=== PATIENT | female | born 1930 | race Caucasian/White ===

== ENCOUNTER 2021-01-18 00:46 | Emergency (ER) | payer MEDICARE, OTHER ==
[2021-01-18 01:05] VITALS: BP 166/82; PULSE 74
[2021-01-18] MEDS: HYDROmorphone 1 MG/ML Syringe IVPUSH ONE (01:08)
--- NOTE | 2021-01-18 01:48 | EDM.PDOC ---
ED HPI GENERAL MEDICAL PROBLEM - General Chief Complaint: Lower Extremity Injury/Pain Stated Complaint: hip pain Time Seen by Provider: 01/18/21 01:22 Source of Information: Reports: Patient, EMS History Limitations: Reports: No Limitations - History of Present Illness INITIAL COMMENTS - FREE TEXT/NARRATIVE: Patient presents with acute left hip pain. She says she was sitting in her recliner watching TV when it started abruptly. She could barely tolerate putting weight on it. 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 She says the pain tonight was not as bad as the pain she used to have prior to the replacement however. EMS gave her 4 mg of morphine en route and it didn't give much relief tonight. She denies any recent falls or injuries. A few days ago she walked quite a bit with her daughter at [email or web address] in [place] so was sore a bit after that. Left Hip Pain Score (Numeric/FACES): 10 - Related Data Allergies Allergy/AdvReac Type Severity Reaction Status Date / Time niacin Allergy Itching Verified 01/18/21 01:07 Home Meds: Home Meds Aspirin [Halfprin] 81 mg PO DAILY 01/18/21 [History] Calcium Carbonate [Calcium] 600 mg PO BID@01/18/21 [History] Cholecalciferol (Vitamin D3) [Vitamin D3] 1,000 unit PO DAILY 01/18/21 [History] Furosemide 20 mg PO DAILY 01/18/21 [History] Glucosamine [Glucosamine Sulfate] 1,000 mg PO DAILY 01/18/21 [History] Ipratropium/Albuterol Sulfate [Iprat-Albut 0.5-3(2.5) MG/3 ML] 3 ml IH TID 01/18/21 [History] Magnesium Oxide 800 mg PO DAILY 01/18/21 [History] Metoprolol Succinate [Toprol XL] 25 mg PO BID@01/18/21 [History] Multivitamin 1 each PO DAILY 01/18/21 [History] Omeprazole 20 mg PO DAILY 01/18/21 [History] Potassium Chloride 20 meq PO DAILY 01/18/21 [History] Rivaroxaban [Xarelto] 15 mg PO DAILY 01/18/21 [History] Rosuvastatin [Crestor] 10 mg PO DAILY 01/18/21 [History] Social & Family History - Tobacco Use Tobacco Use Status *Q: Former Tobacco User Used Tobacco, but Quit: Yes Month/Year Tobacco Last Used: 09/1995 Second Hand Smoke Exposure: No - Caffeine Use Caffeine Use: Reports: Soda - Recreational Drug Use Recreational Drug Use: No Review of Systems - Review of Systems Review Of Systems: See Below Constitutional: Denies: Chills, Diaphoresis, Fever, Weakness Eyes: Reports: No Symptoms Ears: Reports: No Symptoms Nose: Reports: No Symptoms Mouth/Throat: Reports: No Symptoms Respiratory: Reports: No Symptoms Cardiovascular: Reports: No Symptoms GI/Abdominal: Reports: No Symptoms Genitourinary: Reports: No Symptoms Musculoskeletal: Reports: Joint Pain (anterior left hip only). Denies: Neck Pain, Shoulder Pain, Arm Pain, Back Pain Skin: Reports: No Symptoms Neurological: Reports: No Symptoms Psychiatric: Reports: No Symptoms ED EXAM, GENERAL - Physical Exam Exam: See Below Exam Limited By: No Limitations General Appearance: Alert, WD/WN, No Apparent Distress Eye Exam: Bilateral Eye: EOMI, Normal Inspection, PERRL Ears: Normal External Exam, Hearing Grossly Normal Nose: Normal Inspection, No Blood Throat/Mouth: Normal Inspection, Normal Lips, Normal Voice, No Airway Compromise Head: Atraumatic, Normocephalic Neck: Normal Inspection, Full Range of Motion Respiratory/Chest: No Respiratory Distress, Lungs Clear, Normal Breath Sounds, No Accessory Muscle Use Cardiovascular: Regular Rate, Rhythm, No Murmur GI/Abdominal: Normal Bowel Sounds, Soft, Non-Tender, No Organomegaly, No Distention Back Exam: Normal Inspection, Full Range of Motion. No: CVA Tenderness (L), CVA Tenderness (R) Extremities: Normal Inspection, Normal Range of Motion, Non-Tender, Other (She tolerates passive ROM of left hip now very well and there is no clunking or crepitus evident. Palpation doesn't reproduce the pain. ) Neurological: Alert, Oriented, Normal Cognition, No Motor/Sensory Deficits Psychiatric: Normal Affect, Normal Mood Skin Exam: Warm, Dry, Intact, Normal Color, No Rash Course - Vital Signs Last Recorded V/S: Last Vital Signs Temp 98.6 F 01/18/21 01:01 Pulse 74 01/18/21 01:01 Resp 22 H 01/18/21 01:01 BP 166/82 H 01/18/21 01:01 Pulse Ox 90 L 01/18/21 01:01 - Orders/Labs/Meds Orders: Active Orders 24 hr Category Date Time Status Hip Min 2V or 3V w Pelvis Lt [CR] Stat Exams 01/18/21 00:59 Ordered Meds: Medications Discontinued Medications Generic Name Dose Route Start Last Admin Trade Name Emeterio PRN Reason Stop Dose Admin Hydromorphone HCl 1 mg 01/18/21 00:59 01/18/21 01:08 Hydromorphone 1 Mg/Ml Syringe IVPUSH 01/18/21 01:00 1 mg ONETIME ONE Administration - Re-Assessments/Exams Free Text/Narrative Re-Assessment/Exam: 01/18/21 01:53 Xrays of pelvis and left hip show left total hip arthroplasty in good position. 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 No evidence of fracture or dislocation. Patient says the pain is minimal now but on arrival was still quite severe prior to Dilaudid 1 mg in ER. 01/18/21 02:36 Xray report indicates no acute findings. Patient is still feeling much improved. We tried weight-bearing which was well-tolerated. She felt a little "pull" with the hip fully extended and it is more comfortable flexed slightly. I think this is most likely a muscle spasm and patient thinks it might be too. Some PT would likely be beneficial if this persists or returns. We discussed findings and treatment plan. Patient discharged to home in stable condition. Departure - Departure Time of Disposition: 02:33 Disposition: Home, Self-Care 01 Condition: Good Clinical Impression: Acute pain of left hip - Discharge Information Referrals: Marine Kelly PA-C [Primary Care Provider] - Additional Instructions: You can take 1-2 of your extra-strength Tylenol if the pain starts to return and every 8 hours as needed. Follow up with your PCP on Monday or Monday for recheck and to consider physical therapy. Return to ER if needed. Sepsis Event Note (ED) - Evaluation Sepsis Screening Result: No Definite Risk - Focused Exam Vital Signs: Vital Signs Temp Pulse Resp BP Pulse Ox 01/18/21 01:01 98.6 F 74 22 H 166/82 H 90 L - My Orders Last 24 Hours: My Active Orders 01/18/21 00:59 Hip Min 2V or 3V w Pelvis Lt [CR] Stat - Assessment/Plan Last 24 Hours: My Active Orders 01/18/21 00:59 Hip Min 2V or 3V w Pelvis Lt [CR] Stat
--- NOTE | 2021-01-18 08:36 | CR ---
[id number] RAD/RAD Pelvis 1V W 2V Left Hip EXAM: 3 VIEWS LEFT HIP. INDICATION: LEFT HIP PAIN COMPARISON: None. DISCUSSION: Postsurgical changes following total left hip arthroplasty. No evidence of acute hardware failure or loosening. The prosthesis remains in articulatory alignment. IMPRESSION: 1. As above. González Wilkes DO 01/18/21 0835 Thank you for allowing us to participate in the care of your patient.
== END 2021-01-18 02:50 | disposition home or self-care (01) ==
LOC: KA.ED 00:46
DX: M25.552 Pain in left hip (principal); Z88.8 Allergy status to other drugs, medicaments and biological substances; Z87.891 Personal history of nicotine dependence; Z79.899 Other long term (current) drug therapy; Z79.82 Long term (current) use of aspirin
CPT/HCPCS: 96374; 99283; 99284-25; J1170

== ENCOUNTER 2021-01-19 14:50 | Emergency (ER) | payer MEDICARE, OTHER ==
[2021-01-19 14:57] VITALS: BP 189/86; PULSE 76
--- NOTE | 2021-01-19 15:04 | EDM.PDOC ---
ED HPI GENERAL MEDICAL PROBLEM - General Stated Complaint: LEFT GROIN PAIN Time Seen by Provider: 01/19/21 14:53 Source of Information: Reports: Patient History Limitations: Reports: No Limitations - History of Present Illness INITIAL COMMENTS - FREE TEXT/NARRATIVE: Patient presents with left hip pain after she pivoted with her leg while seated on a swivel chair where she lives with her daughter. No fall or other injury. The pain is anterolateral hip. She was in ER here with very similar pain about 36 hours ago which was doing well until this incident today. She is 25 years S/P left TYRONE and has done well with it. - Related Data Allergies Allergy/AdvReac Type Severity Reaction Status Date / Time niacin Allergy Itching Verified 01/19/21 14:58 Home Meds: Home Meds Aspirin [Halfprin] 81 mg PO DAILY 01/18/21 [History] Calcium Carbonate [Calcium] 600 mg PO BID@,01/18/21 [History] Cholecalciferol (Vitamin D3) [Vitamin D3] 1,000 unit PO DAILY 01/18/21 [History] Furosemide 20 mg PO DAILY 01/18/21 [History] Glucosamine [Glucosamine Sulfate] 1,000 mg PO DAILY 01/18/21 [History] Ipratropium/Albuterol Sulfate [Iprat-Albut 0.5-3(2.5) MG/3 ML] 3 ml IH TID 01/18/21 [History] Magnesium Oxide 800 mg PO DAILY 01/18/21 [History] Metoprolol Succinate [Toprol XL] 25 mg PO BID@,01/18/21 [History] Multivitamin 1 each PO DAILY 01/18/21 [History] Omeprazole 20 mg PO DAILY 01/18/21 [History] Potassium Chloride 20 meq PO DAILY 01/18/21 [History] Rivaroxaban [Xarelto] 15 mg PO DAILY 01/18/21 [History] Rosuvastatin [Crestor] 10 mg PO DAILY 01/18/21 [History] Past Medical History HEENT History: Reports: Impaired Vision Cardiovascular History: Reports: Afib, Heart Failure, High Cholesterol, Hypertension Respiratory History: Reports: COPD, SOB HR RECEPTIONIST History: Reports: - Infectious Disease History Infectious Disease History: Reports: Measles - Past Surgical History Cardiovascular Surgical History: Reports: Cardiac Ablation Respiratory Surgical History: Reports: None Musculoskeletal Surgical History: Reports: Hip Replacement Other Musculoskeletal Surgeries/Procedures:: Left hip replacement in 1997 Social & Family History - Caffeine Use Caffeine Use: Reports: Soda Review of Systems - Review of Systems Review Of Systems: Comprehensive ROS is negative, except as noted in HPI. ED EXAM, GENERAL - Physical Exam Exam: See Below Exam Limited By: No Limitations General Appearance: Alert, WD/WN, No Apparent Distress Eye Exam: Bilateral Eye: EOMI, Normal Inspection, PERRL Ears: Normal External Exam, Hearing Grossly Normal Nose: Normal Inspection, No Blood Throat/Mouth: Normal Inspection, Normal Lips, Normal Voice, No Airway Compromise Head: Atraumatic, Normocephalic Neck: Normal Inspection, Full Range of Motion Respiratory/Chest: No Respiratory Distress, Lungs Clear, Normal Breath Sounds, No Accessory Muscle Use Cardiovascular: Regular Rate, Rhythm, No Murmur Extremities: Normal Range of Motion, Other (While doing PROM on the left hip I felt a very slight clunk but ROM or pain level didn't improve or worsen afterward. She tolerated the flexion and rotation quite well. No evidence of dislocation on exam but will get xray.) Neurological: Alert, Oriented, Normal Cognition, No Motor/Sensory Deficits (dorsiflexion/plantar flexion symmetric) Psychiatric: Normal Affect, Normal Mood Skin Exam: Warm, Dry, Intact, Normal Color, No Rash Course - Re-Assessments/Exams Free Text/Narrative Re-Assessment/Exam: 01/19/21 15:11 She looked quite comfortable sitting with a pillow under her left knee. I asked how the pain was while resting there and she says about 7. I asked if she wanted anything for the pain and she declined. 01/19/21 16:22 Later she requested pain medication and Dilaudid 1 mg was given IV. She is now comfortable and pain-free. Xrays show no fracture, hardware malfunction or other acute pathology. I discussed findings with patient. I don't know what is causing her pain but suspect muscle strain from the lateral movement she performs when pivoting her swivel chair. I do feel that since she has had severe pain requiring ER visits twice now in two days she should follow up with orthopedics [facility]. She says Dr. iFsher did her initial surgery so she would like to see Dr. Bethea when he comes to [place] next. We will try to set that up. I also am giving her a Rx for Hydrocodone/APAP #20, 1-2 po q4-6h prn, 0 refills. She is discharged to home in stable condition. Departure - Departure Time of Disposition: 16:10 Disposition: Home, Self-Care 01 Condition: Good Clinical Impression: Acute pain of left hip S/P total hip arthroplasty Qualifiers: Laterality: left Qualified Code(s): Z96.642 - Presence of left artificial hip joint - Discharge Information Referrals: Marine Kelly PA-C [Primary Care Provider] - Additional Instructions: Try to avoid the pivoting movements in your swivel chair that seem to be causing this pain. We are setting up an appointment for you with Dr. Bethea, orthopedist here in [place]. We will let you know the date and time. We are trying to get an appointment for January 28 when he is here. If that is not available you may want to go to [facility] to get in earlier. The number there is [phone]. If your pain returns or if you do have another painful incident with this, you can take Hydrocodone as directed. Follow up with your PCP or return to ER if needed.
[2021-01-19] MEDS: HYDROmorphone 1 MG/ML Syringe IVPUSH ONE (15:37)
[2021-01-19] MEDS: Sodium Chloride 0.9% 10 ML Syringe FLUSH PRN (15:43)
--- NOTE | 2021-01-19 15:55 | CR ---
[id number] RAD/RAD Hip Left 2-3V EXAM: RAD Hip Left 2-3V INDICATION: LEFT HIP PAIN AFTER PIVOTING ON A SWIVEL CHAIR COMPARISON: January 18, 2021. DISCUSSION: A left hip arthroplasty is unchanged in appearance without evident hardware complication. No fracture or other osseous abnormality is seen. IMPRESSION: 1. Left total hip arthroplasty without evident hardware complication. Red Peterson MD 01/19/21 7975 Thank you for allowing us to participate in the care of your patient.
== END 2021-01-19 16:45 | disposition home or self-care (01) ==
LOC: KA.ED 14:50
DX: M25.552 Pain in left hip (principal); E78.00 Pure hypercholesterolemia, unspecified; I11.0 Hypertensive heart disease with heart failure; I50.9 Heart failure, unspecified; Z96.642 Presence of left artificial hip joint; Z79.82 Long term (current) use of aspirin; Z88.3 Allergy status to other anti-infective agents
CPT/HCPCS: 96374; 99283; 99284-25; J1170